=== PATIENT | female | born 2000 | race Caucasian/White ===

== ENCOUNTER 2025-03-16 23:29 | Emergency (ER) | payer SELFPAY ==
[~2025-03-16] VITALS: Ht 165.1 cm; Wt 105.0 kg
[2025-03-16 23:50] VITALS: TEMP 36.7; O2SAT 99
[2025-03-17 00:03] LABS: BASOPHILS % 0.3 % (0.0-2.0); EOSINOPHILS % 0.7 % (0.0-5.0); LYMPHOCYTES % 26.7 % (20.0-50.0); MEAN CORPUSCULAR HEMOGLOBIN 28.6 pg (28.0-32.0); MEAN CORPUSCULAR HGB CONC 34.1 g/dL (31.0-37.0); MEAN CORPUSCULAR VOLUME 83.8 fL (81.0-99.0); MEAN PLATELET VOLUME 9.5 fl (7.4-10.4); MONOCYTES % 6.3 % (2.0-8.0); PLATELET 229 x1000/uL (130-400); RED CELL DISTRIBUTION WIDTH 13.6 % (11.6-14.6); WHITE BLOOD COUNT 8.8 x1000/uL (4.5-11.0)
[2025-03-17 00:13] LABS: CHLORIDE 107 mEq/L (98-107); POTASSIUM 3.5 mEq/L (3.5-5.1); SODIUM 139 mEq/L (136-145)
[2025-03-17 00:14] LABS: CARBON DIOXIDE 26 mEq/L (21-32)
[2025-03-17 00:15] LABS: CALCIUM 9.9 mg/dL (8.7-10.4)
[2025-03-17 00:19] LABS: CREATININE 0.8 mg/dL (0.6-1.0); GLUCOSE 99 mg/dL (70-105); UREA NITROGEN BLOOD 7 mg/dL (9-23)
[2025-03-17 00:21] LABS: ALANINE AMINOTRANSFERASE 37 IU/L (10-49); ALBUMIN 4.7 g/dL (3.2-4.8); ASPARTATE AMINOTRANSFERASE 15 IU/L (<34)
[2025-03-17 00:22] LABS: BILIRUBIN TOTAL 0.5 mg/dL (0.1-1.0); PROTEIN TOTAL 7.5 g/dL (6.0-8.3)
[2025-03-17 00:31] LABS: CLARITY URINE CLOUDY (CLEAR); COLOR URINE YELLOW (YELLOW); GLUCOSE URINE NEGATIVE (NEGATIVE); KETONES URINE NEGATIVE (NEGATIVE); LEUKOCYTE ESTERASE URINE 2+ (NEGATIVE); NITRITE URINE NEGATIVE (NEGATIVE); OCCULT BLOOD URINE 2+ (NEGATIVE); PROTEIN URINE NEGATIVE (NEGATIVE); SPECIFIC GRAVITY URINE 1.017 (1.005-1.030)
[2025-03-17 00:46] LABS: HCG SCREEN NEGATIVE
[2025-03-17] MEDS: KETOROLAC 30MG/ML VIAL IM ONE (01:19)
[2025-03-17] MEDS ORDERED: IBUP-2029 MT (01:55)
[2025-03-17] MEDS ORDERED: METR-167 MT (01:55)
[2025-03-17] MEDS ORDERED: DOXY-461 MT (01:55)
[2025-03-17 02:27] LABS: SQUAMOUS EPITHELIAL CELL URINE FEW /lpf (RARE/1+)
[2025-03-17 02:30] LABS: WBC URINE 0-2 /hpf (0-2)
[2025-03-17 02:46] LABS: RBC URINE 0-2 /hpf (0-2)
[2025-03-17 02:47] LABS: BACTERIA URINE 1+
[2025-03-17] MEDS: DOXYCYCLINE HYCLATE 100MG CAPSULE PO ONE (03:26)
[2025-03-17] MEDS: CEFTRIAXONE SODIUM 500MG VIAL IM ONE (03:26)
[2025-03-17 03:34] VITALS: BP 144/92; PULSE 86; RESP 18; O2SAT 99
== END 2025-03-17 03:45 | disposition home or self-care (01) ==
LOC: ER 23:35
DX: N76.0 Acute vaginitis (principal); B96.89 Other specified bacterial agents as the cause of diseases classified elsewhere; R10.2 Pelvic and perineal pain; Z97.5 Presence of (intrauterine) contraceptive device; Z79.899 Other long term (current) drug therapy
CPT/HCPCS: 99285; 80053; 81025; 84703; 85025; 36415; 76856; 81003; 87210; 96372; J1885; J0696

== ENCOUNTER 2025-07-21 22:27 | Emergency (ER) | payer MEDICAID ==
[~2025-07-21] VITALS: Ht 165.1 cm; Wt 105.0 kg
[~2025-07-21 22:27] MED LIST: DOXY-461 MT; IBUP-1455 MT; METR-167 MT
[2025-07-21 22:32] VITALS: TEMP 37.1; O2SAT 99
[2025-07-22 00:03] LABS: BASOPHILS % 0.3 % (0.0-2.0); EOSINOPHILS % 0.5 % (0.0-5.0); HEMATOCRIT. 46.0 % (36.0-48.0); HEMOGLOBIN. 15.5 g/dL (12.0-16.0); LYMPHOCYTES % 23.2 % (20.0-50.0); MEAN PLATELET VOLUME 10.0 fl (7.4-10.4); MONOCYTES % 6.9 % (2.0-8.0); NEUTROPHILS % 69.1 % (40.0-76.0); PLATELET 261 x1000/uL (130-400); RED BLOOD CELL COUNT 5.33 mill/uL (4.2-5.4); RED CELL DISTRIBUTION WIDTH 13.3 % (11.6-14.6)
[2025-07-22 00:10] LABS: CREATININE 0.9 mg/dL (0.6-1.0); UREA NITROGEN BLOOD 5 mg/dL (9-23)
[2025-07-22 00:13] LABS: HCG SCREEN NEGATIVE
[2025-07-22 00:56] LABS: CLARITY URINE CLOUDY (CLEAR); COLOR URINE YELLOW (YELLOW); GLUCOSE URINE NEGATIVE (NEGATIVE); KETONES URINE NEGATIVE (NEGATIVE); LEUKOCYTE ESTERASE URINE 3+ (NEGATIVE); NITRITE URINE NEGATIVE (NEGATIVE); OCCULT BLOOD URINE NEGATIVE (NEGATIVE); PH URINE 8.0 (4.5-8.0); PROTEIN URINE NEGATIVE (NEGATIVE); SPECIFIC GRAVITY URINE 1.011 (1.005-1.030); UROBILINOGEN URINE 1.0 E.U./dL (0.2-1.0)
[2025-07-22 04:01] LABS: SQUAMOUS EPITHELIAL CELL URINE 1+ /lpf (RARE/1+)
[2025-07-22 04:04] LABS: RBC URINE 0-2 /hpf (0-2)
[2025-07-22 04:05] LABS: BACTERIA URINE 4+
[2025-07-22] MEDS ORDERED: ACET-2708 MT (04:07)
[2025-07-22] MEDS ORDERED: CIPR-263 MT (04:07)
[2025-07-22] MEDS: INSULIN LISPRO 100 UNITS/ML SUBCUT ONE (04:17)
[2025-07-22 04:23] VITALS: BP 127/89; PULSE 87; RESP 14; O2SAT 100
[2025-07-22] MEDS: ACETAMINOPHEN 325MG TABLET PO ONE (04:23)
== END 2025-07-22 04:25 | disposition home or self-care (01) ==
LOC: ER 22:33
DX: N12 Tubulo-interstitial nephritis, not specified as acute or chronic (principal); E87.6 Hypokalemia; Z90.49 Acquired absence of other specified parts of digestive tract; Z79.899 Other long term (current) drug therapy
CPT/HCPCS: 36415; 80048; 81003; 84703; 85025; 87077; 87186; 99283; J1815